=== PATIENT | male | born 1980 | race Caucasian/White ===

== ENCOUNTER 2017-04-07 23:56 | Emergency (ER) | payer SELFPAY ==
[~2017-04-07] VITALS: Ht 182.9 cm; Wt 90.9 kg
[2017-04-07 23:57] VITALS: TEMP 98.1
[2017-04-08 01:02] VITALS: BP 124/68; PULSE 72
== END 2017-04-08 01:03 | disposition home or self-care (01) ==
LOC: COL.ER 23:56
DX: S61.412A Laceration without foreign body of left hand, initial encounter (principal); Z23 Encounter for immunization; W45.8XXA Other foreign body or object entering through skin, initial encounter

== ENCOUNTER 2018-02-03 16:29 | Emergency (ER) | payer SELFPAY ==
[~2018-02-03] VITALS: Ht 182.9 cm; Wt 109.1 kg
[2018-02-03 16:35] VITALS: TEMP 98.1
[2018-02-03 16:54] LABS: BASO # 0.1 (0.0-0.2); BASO % 0.8 % (0.0-2.0); EOS % 0.2 % (0-4.0); GRAN # 7.1 (1.4-6.5); GRAN % 76.3 % (42.2-75.2); HEMOGLOBIN 15.5 g/dl (13.5-18.0); LYMPH % 10.8 % (20.0-51.0); MEAN CELL VOLUME 85 fl (80.0-100.0); MEAN CORPUSCULAR HEMOGLOBIN 30 pg (27.0-31.0); MEAN CORPUSCULAR HGB CONC 35 g/dl (33.0-37.0); MEAN PLATELET VOLUME 9.2 fl (7.4-10.4); MONO # 1.1 (0.1-0.6); MONO % 11.6 % (1.7-9.3); PLATELET COUNT 308 K/mm3 (130-400); RED BLOOD COUNT 5.16 M/mm3 (4.20-5.60); REDCELL DISTRIBUTION WIDTH-CV 12.2 % (11.5-14.5)
[2018-02-03 17:05] LABS: BILIRUBIN,TOTAL 1.2 mg/dL (0.0-1.0); CALCIUM 9.7 mg/dL (8.4-10.2); CREATININE, serum 1.53 mg/dL (0.66-1.25); MAGNESIUM 1.8 mg/dL (1.6-2.3); POTASSIUM 3.9 mmol/L (3.4-5.0); TOTAL PROTEIN 8.7 gm/dL (6.4-8.2)
[2018-02-03 18:39] LABS: COLLECTION METHOD CLEAN CATCH
[2018-02-03 18:51] LABS: MUCOUS Present /lpf; PH 5 (5-8); SQUAMOUS EPITHELIAL None Seen /hpf; URINE APPEARANCE Clear; URINE BACTERIA None Seen /hpf; URINE BILIRUBIN Negative (NEGATIVE); URINE BLOOD Negative (NEGATIVE); URINE COLOR Yellow; URINE GLUCOSE Negative (NEGATIVE); URINE KETONE Negative (NEGATIVE); URINE LEUKOCYTE ESTERASE Negative (NEGATIVE); URINE NITRATE Negative (NEGATIVE); URINE PROTEIN(semi-quant) Negative (NEGATIVE); URINE RBC 0-2 /hpf; URINE UROBILINOGEN Negative (NEGATIVE)
[2018-02-03 19:13] LABS: CALCIUM 8.5 mg/dL (8.4-10.2); CREATININE, serum 1.22 mg/dL (0.66-1.25)
[2018-02-03 20:42] VITALS: BP 122/69; PULSE 79
== END 2018-02-03 20:43 | disposition home or self-care (01) ==
LOC: COL.ER 16:29
PROVIDERS: Emergency Medicine
DX: R25.2 Cramp and spasm (principal); T67.5XXA Heat exhaustion, unspecified, initial encounter; E87.1 Hypo-osmolality and hyponatremia; E87.6 Hypokalemia; X32.XXXA Exposure to sunlight, initial encounter
CPT/HCPCS: J7030